=== PATIENT | female | born 1990 | race Caucasian/White ===

== ENCOUNTER 2020-03-08 07:54 | Inpatient (IN) ==
[2020-03-08] MEDS ORDERED: RINGER'S SOLUTION,LACTATED 1,000 ML IV PRN (08:24)
[2020-03-08] MEDS ORDERED: OXYTOCIN 20 UNITS in RINGER'S SOLUTION,LACTATED 1,000 ML IV ONE (08:24)
[2020-03-08 08:33] LABS: Urine Bilirubin 1 mg/dl (NEGATIVE); Urine Blood 25 /ul (NEGATIVE); Urine Ketone 15 mg/dL (NEGATIVE); Urine Nitrite Negative (NEGATIVE); Urine Protein 15 mg/dL (NEGATIVE); Urine Urobilinogen Normal (NORMAL)
[2020-03-08 08:41] LABS: Urine Appearance Slightly Cloudy (CLEAR); Urine Color Dark Yellow; Urine RBC 0-5 /hpf (0-5); Urine WBC 0-5 /hpf (0-5)
[2020-03-08 08:42] LABS: Urine Bacteria 2+
[2020-03-08] MEDS ORDERED: NEOSTIGMINE METHYLSULFATE 1 MG/ML VIAL ONE (08:46)
[2020-03-08] MEDS ORDERED: GLYCOPYRROLATE 0.2 MG/ML VIAL ONE (08:46)
[2020-03-08 08:51] LABS: Cocaine Ur Negative (NEGATIVE); Urine Barbiturate Negative (NEGATIVE); Urine Benzodiazepines Negative (NEGATIVE); Urine Opiates Negative (NEGATIVE); Urine PCP Negative (NEGATIVE); Urine THC Negative (NEGATIVE)
--- NOTE | 2020-03-08 09:30 | OR ---
Operative Report - Dictated Report Narrative: Date of delivery: 03/08/2020 Time of delivery: 08 Gender: male APGARS: 7/8 weight: 2980 grams Preoperative diagnosis: IUP at 38w 1d, history of delivery x5, complete cervical dilation, meta-amphetamine abuse Postoperative diagnosis: same Procedure: repeat delivery Surgeon: Dr. Marcelino Anesthesia: General Anesthesiologist: Ravinder Horvath CRNA Description of the procedure: The patient was taken to the operating room for a STAT delivery due to prior history of multiple cesareans and complete dilation. The patient was prepped and draped in the supine position in the standard fashion. A Pfannestiel skin incision was made using the patient's prior incision. The incision was carried through the subcutaneous tissue. The fascia was incised in the midline. The fascia was grasped superiorly. The fascia was dissected off the underlying rectus muscle. The peritoneum was entered bluntly as a clear layer of tissue was present and there was good visualization of both bowel and bladder. A large Jace retractor was placed. The lower uterine segment appeared thin. The lower uterine segment was incised in a low transverse fashion. Clear amniotic fluid was noted. The amniotic fluid was foul smelling. The right arm was presenting at the incision as the head was deep in the pelvis secondary to labor. The head was brought through the incision without any difficulty. The rest of the delivered without difficulty. The cord was clamped and cut. The infant was handed off to the attending pediatric staff. Cord blood was collected. The placenta was delivered by expression and appeared intact. Trailing membranes were noted and removed without difficulty. The uterus was cleared of all clots and debris. The uterine incision was closed with 2 layers of 0-vicryl. The second layer was an imbricating layer. Hemostasis was adequate. The Jace retractor was removed from the abdomen. The fascial incision was closed with 1-0 vicryl. The skin incision was closed with 3-0 monocryl on a Jian needle. [place] calvo was placed over the incision. A dressing was applied. All sponge, lap, and needle counts were correct. The patient tolerated the procedure well. She was transferred to the recovery room in stable condition. EBL: 600 mL Complications: none Specimens: placenta to pathology History for Definition: * The number of deliveries resulting in a live the patient experienced prior to current hospitalization * The previous delivery of live twins or any live multiple gestation is considered one live event. *If primagravida or nulliparous is documented select zero for the number of previous live births. Live Events: 5
--- NOTE | 2020-03-08 09:42 | ANES ---
Post Anesthesia Discharge - Transfer of Care Transfer of Care handoff given to nurse: Yes - Discharge from PACU Discharge from PACU when meets criteria: Yes - Discharge to ASU Discharge to ASU-no complications/pt stable: Yes
--- NOTE | 2020-03-08 09:42 | ANES ---
Anesthesia Pre Procedure Eval Vitals/Labs: Last Vital Signs Temp 36.2 C 03/08/20 09:30 Pulse 71 03/08/20 09:30 Resp 20 03/08/20 09:30 BP 88/50 L 03/08/20 09:30 Pulse Ox 94 03/08/20 09:30 HOME MEDICATIONS Iron 18 mg PO DAILY 03/02/16 [Last Taken Unknown] Nitrofurantoin/Nitrofuran Mac [Macrobid] 100 mg PO Q12H #14 cap 03/02/16 [Last Taken Unknown] Vits96/Iron Fum/Folic [ S] 1 tab PO DAILY 03/02/16 [Last Taken Unknown] Allergies/Adverse Reactions: Allergies Allergy/AdvReac Type Severity Reaction Status Date / Time No Known Allergies Allergy Unverified 03/02/16 00:27 - Planned Procedure Planned Procedure: C/S Medication List Reviewed:: Yes Allergies Verified: Yes - Family Anesthesia History Family History:: no untoward family reactions to anesthesia, no familial bleeding tendencies, no family history of clotting disorders, no family history of premature - Airway/Neck/Teeth Teeth Condition: missing Mallampatti Score: 2 Thyromental (T-M) distance: > 6 cm Mandibulo Hyoid distance: > 3 cm - Respiratory Smoking Status: Current every day smoker Discussed smoking cessation including day of surgery: No Sleep Apnea currently treated: No Sleep Apnea by current assessment: No Discussed Risks/Treatment of LINWOOD: No - Cardiovascular Tolerate Activity: Fair Heart Sounds: S1 & S2, Regular - Gastrointestinal NPO since: unknown - Anesthesia Assessment and Plan ASA Class: PS, II, E Anesthesia Type Plan: General ET
--- NOTE | 2020-03-08 09:43 | ANES ---
Post Anesthesia Assessment - Vital Signs Vitals: Last Vital Signs Temp 36.2 C 03/08/20 09:35 Pulse 81 03/08/20 09:35 Resp 14 03/08/20 09:35 BP 88/62 L 03/08/20 09:35 Pulse Ox 98 03/08/20 09:35 Airway Patency: Normal - Mental Status Level Of Consciousness: Awake - Pain Level Pain Score: 10 - N/V Assessment Nausea/Vomiting Presence: None Dehydration:: No
[2020-03-08] MEDS ORDERED: PROPOFOL VIAL IV ONE (09:45)
[2020-03-08] MEDS ORDERED: fentaNYL CITRATE/PF 50 MCG/ML AMPUL ONE (09:45)
[2020-03-08] MEDS ORDERED: MIDAZOLAM HCL/PF 5 MG/ML VIAL ONE (09:45)
[2020-03-08] MEDS ORDERED: ONDANSETRON HCL/PF 2 MG/ML VIAL ONE (09:45)
[2020-03-08] MEDS ORDERED: SUCCINYLCHOLINE CHLORIDE 20 MG/ML VIAL ONE (09:46)
[2020-03-08] MEDS ORDERED: ROCURONIUM BROMIDE 10 MG/ML VIAL ONE (09:46)
[2020-03-08] MEDS ORDERED: PIPERONYL BUTOX/PYRETHR/PERMET 1 EACH KIT TP ONE (10:30)
[2020-03-08] MEDS ORDERED: SENNOSIDES 8.6 MG TABLET PO PRN (11:40)
[2020-03-08] MEDS ORDERED: HYDROcodone/ACETAMINOPHEN 1 EACH TABLET PO PRN (11:40)
[2020-03-08] MEDS ORDERED: ONDANSETRON HCL/PF 2 MG/ML VIAL IV PRN (11:40)
[2020-03-08] MEDS ORDERED: KETOROLAC TROMETHAMINE 30 MG/ML VIAL IV PRN (11:40)
[2020-03-08] MEDS ORDERED: SIMETHICONE 80 MG TAB.CHEW PO PRN (11:40)
[2020-03-08] MEDS ORDERED: BISACODYL 10 MG SUPP.RECT RC PRN (11:40)
[2020-03-08] MEDS ORDERED: diphenhydrAMINE HCL 25 MG CAPSULE PO PRN (11:40)
--- NOTE | 2020-03-08 11:48 | HP ---
Chief Complaint - Chief Complaint Date of Service: 03/08/20 Time of Service: 11:41 Chief Complaint: Labor History of Present Illness: 29 year old at 38w 1d who presented in labor. She has had scant care. She reported regular contractions. She denied vb or lof. Fetus is active. Medical History (Last Reviewed 03/08/20 @ 11:45 by Shauna Marcelino MD) No pertinent past medical history Twin delivery by Surgical History: Surgical History (Last Reviewed 03/08/20 @ 11:45 by Shauna Marcelino MD) H/O: Hx of tonsillectomy Family History: Family History (Last Reviewed 03/08/20 @ 11:45 by Shauna Marcelino MD) Mother Lupus Son Seizures Asperger syndrome Social History: (Last Reviewed 03/08/20 @ 11:45 by Shauna Marcelino MD) Social History: Marital status: Tobacco: Smoking Status: Current every day smoker Substance Use: substance use type: former substance user Review Of Systems (GEN) - Review of Systems Generalized/Overall Review: Present: No Symptoms Reported Genitourinary: Present: Other - contractions Misc: All systems neg except as marked Immunizations: IMMUNIZATION HX Immunizations Up to Date Yes History of Influenza Vaccine Yes Hx Pneumococcal Vaccination No Allergies/Adverse Reactions: Allergies Allergy/AdvReac Type Severity Reaction Status Date / Time No Known Allergies Allergy Unverified 03/02/16 00:27 Home Medications: HOME MEDICATIONS Nitrofurantoin/Nitrofuran Mac [Macrobid] 100 mg PO Q12H #14 cap 03/02/16 [Last Taken Unknown] Vits96/Iron Fum/Folic [ S] 1 tab PO DAILY 03/02/16 [Last Taken Unknown] RX: Iron 18 mg PO DAILY 03/02/16 [Last Taken Unknown] Exam - Exam Vital Signs: Vital Signs - Last Taken Temp 36.3 C 03/08/20 10:55 Pulse 70 03/08/20 10:55 Resp 16 03/08/20 10:55 BP 124/78 03/08/20 10:55 Pulse Ox 100 03/08/20 10:55 Constitutional: Present: Alert, Oriented x3, Cooperative, No distress ENT Exam: Present: hearing grossly normal Eye Exam: bilateral eye: normal inspection Neck: Present: normal inspection Back Exam: Present: normal inspection, no CVA tenderness Breasts: Present: Exam deferred Respiratory: Present: lungs clear, normal breath sounds, no respiratory distress Cardiovascular/Chest: Present: regular rate, rhythm, no murmur Abdomen: Present: soft, nontender, nondistended /Rectal: Present: Exam deferred, Other - 10/100/+1 by RN exam Extremity: Present: non-tender Skin Exam: Present: normal color, warm/dry, no cyanosis Neurologic: Present: alert, normal mood/affect, oriented x 3 Appearance: Present: appropriate appearance, appropriate insight Eye contact: Present: cooperative, good eye contact Thoughts: Present: normal thought pattern Diagnostic Studies: Abnormal Lab Results 03/08/20 03/08/20 Range/Units 08:25 08:25 Urine Protein 15 H (NEGATIVE) mg/dL Urine Blood 25 H (NEGATIVE) /ul Urine Bilirubin 1 H (NEGATIVE) mg/dl Ur Epithelial Cells >25 H (0-5) /hpf Urine Bacteria 2+ H (NONE) Urine Amphetamine Positive H (NEGATIVE) Laboratory Results Urine Color Dark yellow 03/08/20 08:25 Urine Appearance Slightly cloudy (CLEAR) 03/08/20 08:25 Urine pH 7.0 pH (5.0-7.0) 03/08/20 08:25 Ur Specific [place] 1.020 SP.GR. (1.005-1.010) 03/08/20 08:25 Urine Protein 15 mg/dL (NEGATIVE) H 03/08/20 08:25 Urine Glucose (UA) Negative mg/dL (NEGATIVE) 03/08/20 08:25 Urine Ketones 15 mg/dL (NEGATIVE) 03/08/20 08:25 Urine Blood 25 /ul (NEGATIVE) H 03/08/20 08:25 Urine Nitrate Negative (NEGATIVE) 03/08/20 08:25 Urine Bilirubin 1 mg/dl (NEGATIVE) H 03/08/20 08:25 Urine Ictotest Negative (NEGATIVE) 03/08/20 08:25 Prot Sulfosalicylic Acd 1+ mg/dL (0) 03/08/20 08:25 Urine Urobilinogen Normal EU/dl (NORMAL) 03/08/20 08:25 Ur Leukocyte Esterase Negative /ul (NEGATIVE) 03/08/20 08:25 Urine RBC 0-5 /hpf (0-5) 03/08/20 08:25 Urine WBC 0-5 /hpf (0-5) 03/08/20 08:25 Ur Epithelial Cells >25 /hpf (0-5) H 03/08/20 08:25 Urine Bacteria 2+ (NONE) H 03/08/20 08:25 Urine Culture Comments No culture indicated 03/08/20 08:25 Urine Opiates Screen Negative (NEGATIVE) 03/08/20 08:25 Barbiturate Screen Negative (NEGATIVE) 03/08/20 08:25 Ur Phencyclidine Scrn Negative (NEGATIVE) 03/08/20 08:25 Urine Amphetamine Positive (NEGATIVE) H 03/08/20 08:25 U Benzodiazepines Scrn Negative (NEGATIVE) 03/08/20 08:25 Urine Cocaine Screen Negative (NEGATIVE) 03/08/20 08:25 Urine Marijuana (THC) Negative (NEGATIVE) 03/08/20 08:25 Pathology Specimen Spec to path 03/08/20 09:08 Assessment/Plan - Narrative Narrative: 29 year old with history of delivery x5 and complete dilation and +1 station STAT delivery performed due to complete dilation and history of delivery x5. This was done under general anesthesia. GBS unknown: GBS collected [place]-amphetamine abuse: UDS + meta-amphetamine
[2020-03-08] MEDS: IBUPROFEN 800 MG TABLET PO PRN ×2 (11:49→18:23)
[2020-03-08] MEDS: HYDROcodone/ACETAMINOPHEN 1 EACH TABLET PO PRN ×3 (11:50→22:05)
[2020-03-08] MEDS: DOCUSATE SODIUM 100 MG CAPSULE PO SCH (22:04)
[2020-03-09] MEDS: IBUPROFEN 800 MG TABLET PO PRN ×2 (04:47→17:17)
[2020-03-09] MEDS ORDERED: ceFAZolin SODIUM 1 GM VIAL IV PRN (06:00)
[2020-03-09] MEDS: DOCUSATE SODIUM 100 MG CAPSULE PO SCH ×2 (08:11→20:25)
[2020-03-09] MEDS: HYDROcodone/ACETAMINOPHEN 1 EACH TABLET PO PRN ×2 (08:13→17:17)
[2020-03-09] MEDS ORDERED: MEDROXYPROGESTERONE ACET 150 MG/ML SYRG IM ONE (11:57)
--- NOTE | 2020-03-09 11:57 | PN ---
Subjective - Date and Time Seen Date: 03/09/20 Time: 11:56 Subjective Narrative: Patient without complaints Objective Objective Narrative: See vital signs - Review of Systems Generalized/Overall Review: Reports: No Symptoms Reported Misc: All systems neg except as marked - Vitals Vitals: Last Vital Signs Temp 35.9 C L 03/09/20 06:54 Pulse 94 03/09/20 06:54 Resp 18 03/09/20 06:54 BP 121/81 03/09/20 06:54 Pulse Ox 98 03/09/20 06:54 - Exam Constitutional: Present: Alert, Oriented x3, Cooperative, No distress Extremity: Present: non-tender, no calf tenderness Skin Exam: Present: normal color, warm/dry, no cyanosis Appearance: Present: appropriate appearance, appropriate insight Eye contact: Present: cooperative, good eye contact Thoughts: Present: normal thought pattern Cauti Physician Documentation - Urinary Catheter Management Urethral (Zavala) Urethral Indwelling: No Date of Insertion: 03/08/20 Time of Insertion: 10:00 Date of Removal: 03/08/20 Time of Removal: 23:10 Assessment/Plan Plan Narrative: POD 1 s/p repeat delivery Doing well Desires depo-provera for contraception Discharge POD 3
[2020-03-10] MEDS: HYDROcodone/ACETAMINOPHEN 1 EACH TABLET PO PRN ×3 (06:31→23:11)
[2020-03-10] MEDS: IBUPROFEN 800 MG TABLET PO PRN ×3 (06:32→23:11)
[2020-03-10] MEDS: DOCUSATE SODIUM 100 MG CAPSULE PO SCH ×2 (08:56→21:36)
--- NOTE | 2020-03-10 11:52 | PN ---
Subjective - Date and Time Seen Date: 03/10/20 Time: 11:51 Subjective Narrative: Patient without complaints Objective Objective Narrative: See vital signs - Review of Systems Generalized/Overall Review: Reports: No Symptoms Reported Misc: All systems neg except as marked - Vitals Vitals: Last Vital Signs Temp 36.9 C 03/10/20 11:45 Pulse 99 03/10/20 11:45 Resp 18 03/10/20 11:45 BP 116/64 03/10/20 11:45 Pulse Ox 98 03/10/20 11:45 - Exam Constitutional: Present: Alert, Oriented x3, Cooperative, No distress Abdomen: Present: soft, nontender, nondistended - incision c/d/i Extremity: Present: non-tender, no calf tenderness Skin Exam: Present: normal color, warm/dry, no cyanosis Appearance: Present: appropriate appearance Eye contact: Present: cooperative, good eye contact Thoughts: Present: normal thought pattern Cauti Physician Documentation - Urinary Catheter Management Urethral (Zavala) Urethral Indwelling: No Date of Insertion: 03/08/20 Time of Insertion: 10:00 Date of Removal: 03/08/20 Time of Removal: 23:10 Assessment/Plan Plan Narrative: POD 2 s/p repeat delivery Doing well Discharge tomorrow
[2020-03-11] MEDS: IBUPROFEN 800 MG TABLET PO PRN ×2 (07:58→14:54)
[2020-03-11] MEDS: HYDROcodone/ACETAMINOPHEN 1 EACH TABLET PO PRN ×2 (07:58→14:54)
[2020-03-11] MEDS: DOCUSATE SODIUM 100 MG CAPSULE PO SCH ×2 (07:58→14:55)
--- NOTE | 2020-03-11 08:21 | PN ---
Subjective - Date and Time Seen Date: 03/11/20 Time: 08:19 Subjective Narrative: Patient without complaints Objective Objective Narrative: See vital signs - Review of Systems Generalized/Overall Review: Reports: No Symptoms Reported Misc: All systems neg except as marked - Vitals Vitals: Last Vital Signs Temp 36.5 C 03/10/20 19:04 Pulse 88 03/11/20 04:15 Resp 16 03/11/20 04:15 BP 120/67 03/11/20 04:15 Pulse Ox 98 03/11/20 04:15 - Exam Constitutional: Present: Alert, Oriented x3, Cooperative, No distress Abdomen: Present: soft, nontender, nondistended - Incision c/d/i Extremity: Present: non-tender, no calf tenderness Skin Exam: Present: normal color, warm/dry, no cyanosis Appearance: Present: appropriate appearance, appropriate insight Eye contact: Present: cooperative, good eye contact Thoughts: Present: normal thought pattern Cauti Physician Documentation - Urinary Catheter Management Urethral (Zavala) Urethral Indwelling: No Date of Insertion: 03/08/20 Time of Insertion: 10:00 Date of Removal: 03/08/20 Time of Removal: 23:10 Assessment/Plan Plan Narrative: POD 3 s/p repeat delivery Doing well Discharge home Detailed discharge instructions given Follow-up in 6 weeks or sooner for any other concerns
[2020-03-11 12:48] VITALS: BP 114/75
== END 2020-03-11 15:35 | disposition home or self-care (01) | DRG 787 ==
LOC: OBCLINIC 07:54 → OB 07:58
PROVIDERS: ADMIT Obstetrics & Gynecology; ATTEND Obstetrics & Gynecology
CPT/HCPCS: 59025; 80307; 81001; 87081; 88307; 88888; J2405